=== PATIENT | female | born 1990 | race Two or more races ===

== ENCOUNTER 2016-11-14 22:07 | Emergency (ER) | payer BC ==
[2016-11-14 22:20] VITALS: BP 116/75
--- NOTE | 2016-11-14 22:53 | EDM.PDOC ---
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 She is having some cramping but this. She's had no fevers or chills cough or cold symptoms no dysuria. No trouble with this thus far. She had one US demonstrating an intrauterine ] Review of systems: As per history of present illness and below otherwise all systems reviewed and negative. Past medical history: As per history of present illness and as reviewed below otherwise noncontributory. Surgical history: As per history of present illness and as reviewed below otherwise noncontributory. Social history: No reported history of drug or alcohol abuse. Family history: As per history of present illness and as reviewed below otherwise noncontributory. Physical exam: HEENT: Atraumatic, normocephalic, pupils reactive, negative for conjunctival pallor or scleral icterus, mucous membranes moist, throat clear, neck supple, nontender, trachea midline. Lungs: Clear to auscultation, breath sounds equal bilaterally, chest nontender. Heart: S1S2, regular, negative for clicks, rubs, or JVD. Abdomen: Soft, nondistended, nontender. Negative for masses or hepatosplenomegaly. Negative for costovertebral tenderness. Pelvis: Stable nontender. Genitourinary: On speculum examination her cervix is closed there is some pooling of maroon blood present it was mopped up it didn't seem to be much blood coming from the os bimanual examination revealed a uterus consistent with her dates of 7 weeks Rectal: Deferred. Extremities: Atraumatic, negative for cords or calf pain. Neurovascular unremarkable. Neuro: Awake, alert, oriented. Cranial nerves II through XII unremarkable. Cerebellum unremarkable. Motor and sensory unremarkable throughout. Exam nonfocal. Diagnostics: [Ultrasound did demonstrate that there is still a heartbeat and an intrauterine but there is hemorrhage present labs are still pending but are providing just a baseline for us to see her in the future and so we will be discharging her at this time] Therapeutics: [She received IV fluids while here] Impression: [Threatened AB] Plan: [She is to return to the ER if she has significant bleeding soaking through a pad an hour or more. She is to follow up with her OB doctor] Definitive disposition and diagnosis as appropriate pending reevaluation and review of above. - Related Data Allergies/ADRs: Allergies Allergy/AdvReac Type Severity Reaction Status Date / Time No Known Allergies Allergy Verified 11/14/16 22:53 Home Meds: Home Meds NK [No Known Home Meds] 11/14/16 [History] ED ROS GENERAL - Review of Systems Review Of Systems: ROS reveals no pertinent complaints other than HPI. ED EXAM - Physical Exam Exam: See Below Course - Vital Signs Last Recorded V/S: Last Vital Signs Temp 37.5 C 11/14/16 22:53 Pulse 76 11/14/16 22:53 Resp 20 11/14/16 22:53 BP 116/75 11/14/16 22:53 Pulse Ox 100 11/14/16 22:53 - Orders/Labs/Meds Orders: Active Orders 24 hr Category Date Time Status OB 1st Tri Sgl 1st Gest [US] Stat Exams 11/14/16 23:33 Ordered HCG QUANTITATIVE,SERUM [CHEM] Stat Lab 11/14/16 23:32 Ordered PATIENT RETYPE [BBK] Stat Lab 11/14/16 23:39 Results TYPE AND SCREEN [BBK] Stat Lab 11/14/16 23:32 Ordered Sodium Chloride 0.9% [Normal Saline] 1,000 ml Med 11/14/16 23:45 Ordered IV ASDIRECTED Medication Orders Sodium Chloride (Normal Saline) 1,000 mls @ 250 mls/hr IV ASDIRECTED PATRICK Stop: 11/18/16 23:35 Last Admin: 11/14/16 23:45 Dose: 250 mls/hr Labs: Laboratory Tests 11/14/16 11/14/16 Range/Units 23:39 23:39 WBC 10.0 (4.5-11.0) K/uL RBC 4.38 (3.30-5.50) M/uL Hgb 13.1 (12.0-15.0) g/dL Hct 38.9 (36.0-48.0) % MCV 89 (80-98) fL MCH 30 (27-31) pg MCHC 34 (32-36) % Plt Count 290 (150-400) K/uL Neut % (Auto) 63 (36-66) % Lymph % (Auto) 22 L (24-44) % [place] % (Auto) 10 H (2-6) % Eos % (Auto) 5 H (2-4) % Baso % (Auto) 0 (0-1) % Blood Type O POSITIVE Gel Antibody Screen Negative Meds: Medications Generic Name Dose Route Start Last Admin Trade Name Luana PRN Reason Stop Dose Admin Sodium Chloride 1,000 mls @ 250 mls/hr 11/14/16 23:45 11/14/16 23:45 Normal Saline IV 11/18/16 23:35 250 mls/hr ASDIRECTED PATRICK Administration Departure - Departure Time of Disposition: 00:29 Disposition: Home, Self-Care 01 Condition: good Clinical Impression: Threatened Forms: ED Department Discharge Additional Instructions: Please return to the emergency room if your soaking through a pad an hour or more. Follow up with your OB doctorand establish care with an OB doctor if you have not done so already - My Orders Last 24 Hours: My Active Orders 11/14/16 23:32 HCG QUANTITATIVE,SERUM [CHEM] Stat TYPE AND SCREEN [BBK] Stat 11/14/16 23:33 OB 1st Tri Sgl 1st Gest [US] Stat 11/14/16 23:39 PATIENT RETYPE [BBK] Stat 11/14/16 23:45 Sodium Chloride 0.9% [Normal Saline] 1,000 ml IV ASDIRECTED - Assessment/Plan Last 24 Hours: My Active Orders 11/14/16 23:32 HCG QUANTITATIVE,SERUM [CHEM] Stat TYPE AND SCREEN [BBK] Stat 11/14/16 23:33 OB 1st Tri Sgl 1st Gest [US] Stat 11/14/16 23:39 PATIENT RETYPE [BBK] Stat 11/14/16 23:45 Sodium Chloride 0.9% [Normal Saline] 1,000 ml IV ASDIRECTED
[2016-11-14] MEDS ORDERED: Sodium Chloride 0.9% 1,000 ML IV SCH (23:45)
== END 2016-11-15 00:43 | disposition home or self-care (01) ==
LOC: JP.ED 22:07
DX: O20.0 Threatened abortion (principal); Z3A.01 Less than 8 weeks gestation of pregnancy
CPT/HCPCS: 36415; 76801; 84702; 85025; 86850; 86900; 86901; 96360; 99284; J7040

== ENCOUNTER 2017-06-27 02:38 | Inpatient (IN) | payer BC ==
[2017-06-27] MEDS ORDERED: Sodium Chloride 0.9% 10 ML Syringe FLUSH PRN ×2 (02:59→04:00)
[2017-06-27] MEDS ORDERED: Lactated Ringers 1,000 ML IV SCH (03:00)
[2017-06-27] MEDS ORDERED: Acetaminophen 325 MG Tab PO PRN (04:00)
[2017-06-27] MEDS ORDERED: Acetaminophen/Codeine 300-30 MG Tab PO PRN (04:04)
--- NOTE | 2017-06-27 04:15 | PCM.LDHP ---
L&D History of Present Illness - General Date of Service: 06/27/17 (SROM, labor) Admit Problem/Dx: Patient Status Order with Admit Dx/Problem 06/27/17 04:00 Patient Status [ADT] Routine 06/27/17 04:04 Patient Status [ADT] Routine Admission Diagnosis/Problem Admission Diagnosis/Problem Source of Information: Patient History Limitations: Reports: Language Barrier - History of Present Illness Introduction:: Gabriella is a 27 year old presented last evening linda but only dilated to one CM. Was sent home and returned at 0253 with SROM and linda stronger. She was found to be 8 cm and ruptured. admitted or delivery. 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 LMP (Approximate): ([facility]ENVEN[facility]O 06/24/17) - Past Surgical History GI Surgical History: Reports: Colonoscopy Social & Family History - Tobacco Use Smoking Status *Q: Never Smoker - Caffeine Use Caffeine Use: Reports: None - Recreational Drug Use Recreational Drug Use: No H&P Review of Systems - Review of Systems: Review Of Systems: See Below General: Reports: No Symptoms HEENT: Reports: No Symptoms Pulmonary: Reports: No Symptoms Cardiovascular: Reports: No Symptoms Gastrointestinal: Reports: No Symptoms Genitourinary: Reports: No Symptoms Musculoskeletal: Reports: No Symptoms Skin: Reports: No Symptoms Psychiatric: Reports: No Symptoms Neurological: Reports: No Symptoms Hematologic/Lymphatic: Reports: No Symptoms Immunologic: Reports: No Symptoms L&D Exam - Exam Exam: See Below - Vital Signs Vital Signs: Last Vital Signs Temp 96.9 F 06/27/17 02:57 Pulse 88 06/27/17 02:57 Resp 18 06/27/17 02:57 BP 98/64 06/27/17 02:57 Pulse Ox 97 06/27/17 02:57 - OB Specific Contraction Intensity: Strong Movement: Active Heart Tones: Present Heart Tones per Min: 130 Heart Rate (FHR) Variability: Moderate (6-25 bmp) Presentation: Vertex Estimated Weight: 7-8 pounds - Greer Score Greer Score Cervix Position: Anterior Greer Score Consistency: Soft Greer Score Effacement: >80% Greer Score Dilation: > 5 cm Greer Score Infant's Station: -1 ,0 Greer Score Total: 12 - Exam General: Alert, Oriented HEENT: PERRLA, Conjunctiva Clear, EACs Clear, EOMI, Hearing Intact, Mucosa Moist & Alexis, Nares Patent, Normal Nasal Septum, Posterior Pharynx Clear, TMs Clear Neck: Supple, Trachea Midline Lungs: Clear to Auscultation, Normal Respiratory Effort Cardiovascular: Regular Rate, Regular Rhythm GI/Abdominal Exam: Normal Bowel Sounds, Soft, Non-Tender, No Organomegaly, No Distention, No Abnormal Bruit, No Mass, Pelvis Stable Rectal Exam: Normal Exam, Normal Rectal Tone Genitourinary: Normal external exam, Normal bimanual exam, Normal speculum exam Back Exam: Normal Inspection, Full Range of Motion Extremities: Normal Inspection, Normal Range of Motion, Non-Tender, No Pedal Edema, Normal Capillary Refill Skin: Warm, Dry, Intact Neurological: Cranial Nerves Intact, Reflexes Equal Bilateral Psychiatric: Alert, Normal Affect, Normal Mood - Patient Data Lab Results Last 24 hrs: Laboratory Results - last 24 hr 06/27/17 06/27/17 Range/Units 02:58 02:59 WBC 13.6 H (4.5-11.0) K/uL RBC 4.49 (3.30-5.50) M/uL Hgb 12.4 (12.0-15.0) g/dL Hct 36.8 (36.0-48.0) % MCV 82 (80-98) fL MCH 28 (27-31) pg MCHC 34 (32-36) % Plt Count 258 (150-400) K/uL Neut % (Auto) 81 H (36-66) % Lymph % (Auto) 14 L (24-44) % [place] % (Auto) 5 (2-6) % Eos % (Auto) 0 L (2-4) % Baso % (Auto) 0 (0-1) % Membrane Rupture Negative (NEGATIVE) Result Diagrams: 06/27/17 02:59 - Problem List (1) Active labor at term SNOMED Code(s): 95840312 ICD Code: [id number] - Status: Acute Current Visit: Yes (2) SROM (spontaneous rupture of membranes) SNOMED Code(s): 917637028 ICD Code: [id number] - Status: Acute Current Visit: Yes (3) SNOMED Code(s): 91599694 ICD Code: Z34.90 - ENCNTR FOR SUPRVSN OF NORMAL , UNSP, UNSP TRIMESTER Status: Acute Current Visit: Yes Qualifiers: Weeks of gestation: 40 weeks Qualified Code(s): Z3A.40 - 40 weeks gestation of Problem List Initiated/Reviewed/Updated: Yes Orders Last 24hrs: Active Orders 24 hr Category Date Time Status Patient Status [ADT] Routine ADT 06/27/17 04:04 Active Antiembolic Devices [RC] .Routine Care 06/27/17 04:03 Active Communication Order [RC] ASDIRECTED Care 06/27/17 04:00 Active Heart Tones [RC] PER UNIT ROUTINE Care 06/27/17 04:00 Active Notify Provider Vital Signs [RC] PRN Care 06/27/17 04:00 Active Notify Provider [RC] PRN Care 06/27/17 04:00 Active Peripheral IV Care [RC] . DIRECTED Care 06/27/17 02:59 Active Up ad Mahsa [RC] ASDIRECTED Care 06/27/17 04:04 Active VTE/DVT Education [RC] Click to Edit Care 06/27/17 04:03 Active Vital Signs [RC] PER UNIT ROUTINE Care 06/27/17 04:00 Active Vital Signs [RC] PFP Care 06/27/17 04:04 Active Regular Diet [DIET] Diet 06/27/17 Breakfast Active CBC WITH AUTO DIFF [HEME] AM Lab 06/27/17 05:11 Ordered CBC WITH AUTO DIFF [HEME] AM Lab 06/28/17 05:11 Ordered Acetaminophen [Tylenol] Med 06/27/17 04:00 Active 650 mg PO Q4H PRN Acetaminophen/Codeine [Tylenol with Codeine No.3 300MG/ Med 06/27/17 04:04 Active 30MG] 1 tab PO Q4H PRN FLU Vacc [id number] 36Mos UP/PF [Fluzone Quad 4818-6236] Med 06/27/17 10:00 Once 60 mcg IM .ONCE ONE Ibuprofen [Motrin] Med 06/27/17 04:04 Active 600 mg PO Q6H PRN Lactated Ringers [Ringers, Lactated] 1,000 ml Med 06/27/17 03:00 Active IV ASDIRECTED Oxytocin/Normal Saline [Pitocin in NS 20 Units/1,000 ML Med 06/27/17 04:15 Active ] 20 unit in 1,000 ml IV TITRATE Sodium Chloride 0.9% [Saline Flush] Med 06/27/17 02:59 Active 10 ml FLUSH ASDIRECTED PRN Sodium Chloride 0.9% [Saline Flush] Med 06/27/17 04:00 Active 10 ml FLUSH ASDIRECTED PRN Assess Lochia [WOMSER] Per Unit Routine Oth 06/27/17 04:04 Ordered Assess Uterine Involution [WOMSER] Per Unit Routine Oth 06/27/17 04:04 Ordered DVT/VTE Prophylaxis Reflex [OM.PC] Routine Oth 06/27/17 04:00 Ordered Perineal Care [OM.PC] Per Unit Routine Oth 06/27/17 04:05 Ordered Peripheral IV Discontinue [OM.PC] Routine Oth 06/27/17 04:05 Ordered Peripheral IV Insertion Adult [OM.PC] Routine Oth 06/27/17 02:59 Ordered Saline Lock Insert [OM.PC] Routine Oth 06/27/17 04:00 Ordered Resuscitation Status Routine Resus Stat 06/27/17 04:00 Ordered Medication Orders Acetaminophen (Tylenol) 650 mg PO Q4H PRN PRN Reason: Pain (Mild 1-3) and fever Last Admin: 06/27/17 04:09 Dose: 650 mg Acetaminophen/Codeine Phosphate (Tylenol With Codeine No.3 300mg/30mg) 1 tab PO Q4H PRN PRN Reason: Pain (moderate 4-6) Lactated Ringer's (Ringers, Lactated) 1,000 mls @ 25 mls/hr IV ASDIRECTED PATRICK PRN Reason: KVO Oxytocin/Sodium Chloride (Pitocin In Ns 20 Units/1,000 Ml) 20 unit in 1,000 mls @ 6 mls/hr IV TITRATE PATRICK; 2 MUNITS/MIN PRN Reason: Protocol Ibuprofen (Motrin) 600 mg PO Q6H PRN PRN Reason: mild pain or fever Influenza Virus Vaccine (Fluzone Quad [id number]) 60 mcg IM .ONCE ONE Stop: 06/27/17 10:01 Sodium Chloride (Saline Flush) 10 ml FLUSH ASDIRECTED PRN PRN Reason: Keep Vein Open Sodium Chloride (Saline Flush) 10 ml FLUSH ASDIRECTED PRN PRN Reason: Keep Vein Open Assessment/Plan Comment:: 27 yr old in active labor with SROM with meconium. Admit and plan for vaginal delivery. Labs HIV neg, ABO O pos, Rubella immune, GBS neg
--- NOTE | 2017-06-27 04:27 | PCM.DEL ---
L & D Note - General Info Date of Service: 06/27/17 Mother's Due Date: 07/24/17 - Delivery Note Labor: Spontaneous Delivery Outcome: Livebirth Infant Delivery Method: Spontaneous Vaginal Delivery-Single Infant Delivery Mode: Spontaneous Presentation: Vertex Nuchal Cord: None Anesthesia Type: None Amniotic Fluid Description: Clear Episiotomy Type: None Laceration: None Placenta: Intact, Spontaneous, Meconium Stained Cord: 3 Vessels Estimated Blood Loss: 200 Resuscitation Needed: No [place]: Bulb Syringe, Stimulated, Warmed, [place] Used Provider: Melodie Luevano Score 1 min: 9 Score 5 min: 9 Score 10 min: 10 Second Stage Interventions: Reports: Second Nurse Reviewed Heart Tones, Encouragement Given, Pushing Effectively, Pushing, McRobert's Position Delivery Comments (Free Text/Narrative):: This 27 year old G4 now P4 who is 40 2/7 weeks gestation presented in active labor and was ruptured with meconium strained fluid. [place] progressed quickly to complete and at 0328 delivered over and intact perineum a viable female infant in NADEEM position. The baby was placed on mother's abdomen where she cried spontaneously. She was bulb suctioned mouth and nose for meconium. Baby transitioned quickly and had Apgars of 9,9,10, three vessel cord and weighted 8 pounds. The placenta was expressed spontaneously intact zaidi, grade three and meconium stained. Active management of the third stage was used. No lacerations of the cervix, vagina, rectum or perineum were found EBL 200cc Mother and baby to post and nursery in stable condition. First stage 8403-7505 Second stage 5273-8439 Third stage 7342-6598 - General Info Date of Service: 06/27/17 Admission Dx/Problem (Free Text): Patient Status Order with Admit Dx/Problem 06/27/17 04:00 Patient Status [ADT] Routine 06/27/17 04:04 Patient Status [ADT] Routine Admission Diagnosis/Problem Admission Diagnosis/Problem Functional Status: Reports: Pain Controlled - Review of Systems General: Reports: No Symptoms HEENT: Reports: No Symptoms Pulmonary: Reports: No Symptoms Cardiovascular: Reports: No Symptoms Gastrointestinal: Reports: No Symptoms Genitourinary: Reports: No Symptoms Musculoskeletal: Reports: No Symptoms Skin: Reports: No Symptoms Neurological: Reports: No Symptoms Psychiatric: Reports: No Symptoms - Patient Data Vitals - Most Recent: Last Vital Signs Temp 96.9 F 06/27/17 02:57 Pulse 88 06/27/17 02:57 Resp 18 06/27/17 02:57 BP 98/64 06/27/17 02:57 Pulse Ox 97 06/27/17 02:57 Lab Results Last 24 Hours: Laboratory Results - last 24 hr 06/27/17 06/27/17 Range/Units 02:58 02:59 WBC 13.6 H (4.5-11.0) K/uL RBC 4.49 (3.30-5.50) M/uL Hgb 12.4 (12.0-15.0) g/dL Hct 36.8 (36.0-48.0) % MCV 82 (80-98) fL MCH 28 (27-31) pg MCHC 34 (32-36) % Plt Count 258 (150-400) K/uL Neut % (Auto) 81 H (36-66) % Lymph % (Auto) 14 L (24-44) % [place] % (Auto) 5 (2-6) % Eos % (Auto) 0 L (2-4) % Baso % (Auto) 0 (0-1) % Membrane Rupture Negative (NEGATIVE) Med Orders - Current: Current Medications Acetaminophen (Tylenol) 650 mg PO Q4H PRN PRN Reason: Pain (Mild 1-3) and fever Last Admin: 06/27/17 04:09 Dose: 650 mg Acetaminophen/Codeine Phosphate (Tylenol With Codeine No.3 300mg/30mg) 1 tab PO Q4H PRN PRN Reason: Pain (moderate 4-6) Lactated Ringer's (Ringers, Lactated) 1,000 mls @ 25 mls/hr IV ASDIRECTED PATRICK PRN Reason: KVO Oxytocin/Sodium Chloride (Pitocin In Ns 20 Units/1,000 Ml) 20 unit in 1,000 mls @ 6 mls/hr IV TITRATE PATRICK; 2 MUNITS/MIN PRN Reason: Protocol Ibuprofen (Motrin) 600 mg PO Q6H PRN PRN Reason: mild pain or fever Influenza Virus Vaccine (Fluzone Quad 9179-3089) 60 mcg IM .ONCE ONE Stop: 06/27/17 10:01 Sodium Chloride (Saline Flush) 10 ml FLUSH ASDIRECTED PRN PRN Reason: Keep Vein Open Sodium Chloride (Saline Flush) 10 ml FLUSH ASDIRECTED PRN PRN Reason: Keep Vein Open Discontinued Medications Oxytocin/Sodium Chloride (Pitocin In Ns 20 Units/1,000 Ml) Confirm Administered Dose 20 unit in 1,000 mls @ as directed .ROUTE .STK-MED ONE Stop: 06/27/17 03:12 Influenza Virus Vaccine (Pharmacy To Dose - Influenza Vaccine) 1 each IM ONETIME ONE Stop: 06/27/17 03:18 - Exam General: Alert, Oriented HEENT: Pupils Equal, Pupils Reactive Neck: Supple Lungs: Clear to Auscultation, Normal Respiratory Effort Cardiovascular: Regular Rate, Regular Rhythm GI/Abdominal Exam: Soft (Female) Exam: Normal External Exam, Cervical Dilatation, Enlarged Uterus, Vaginal Bleeding Back Exam: Normal Inspection, Full Range of Motion Extremities: Normal Inspection, Normal Range of Motion Skin: Warm Neurological: No New Focal Deficit Psy/Mental Status: Alert, Normal Affect, Normal Mood - Problem List & Annotations (1) Active labor at term SNOMED Code(s): 62633267 Code(s): IJT0525 - Status: Acute Current Visit: Yes (2) SROM (spontaneous rupture of membranes) SNOMED Code(s): 186348260 Code(s): LOF4153 - Status: Acute Current Visit: Yes (3) SNOMED Code(s): 43659781 Code(s): Z34.90 - ENCNTR FOR SUPRVSN OF NORMAL , UNSP, UNSP TRIMESTER Status: Acute Current Visit: Yes Qualifiers: Weeks of gestation: 40 weeks Qualified Code(s): Z3A.40 - 40 weeks gestation of (4) () SNOMED Code(s): 942616437 Code(s): Z78.9 - OTHER SPECIFIED HEALTH STATUS Status: Acute Current Visit: Yes (5) Meconium in amniotic fluid SNOMED Code(s): 5858340 Code(s): P96.83 - MECONIUM STAINING Status: Acute Current Visit: Yes (6) Vaginal delivery SNOMED Code(s): 134401880 Code(s): O80 - ENCOUNTER FOR FULL-TERM UNCOMPLICATED DELIVERY Status: Acute Current Visit: Yes - Problem List Review Problem List Initiated/Reviewed/Updated: Yes - My Orders Last 24 Hours: My Active Orders 06/27/17 02:59 Peripheral IV Care [RC] . DIRECTED Sodium Chloride 0.9% [Saline Flush] 10 ml FLUSH ASDIRECTED PRN Peripheral IV Insertion Adult [OM.PC] Routine 06/27/17 03:00 Lactated Ringers [Ringers, Lactated] 1,000 ml IV ASDIRECTED 06/27/17 04:00 Communication Order [RC] ASDIRECTED Heart Tones [RC] PER UNIT ROUTINE Notify Provider Vital Signs [RC] PRN Notify Provider [RC] PRN Vital Signs [RC] PER UNIT ROUTINE Acetaminophen [Tylenol] 650 mg PO Q4H PRN Sodium Chloride 0.9% [Saline Flush] 10 ml FLUSH ASDIRECTED PRN DVT/VTE Prophylaxis Reflex [OM.PC] Routine Saline Lock Insert [OM.PC] Routine Resuscitation Status Routine 06/27/17 04:03 Antiembolic Devices [RC] .Routine VTE/DVT Education [RC] Click to Edit 06/27/17 04:04 Patient Status [ADT] Routine Up ad Mahsa [RC] ASDIRECTED Vital Signs [RC] PFP Acetaminophen/Codeine [Tylenol with Codeine No.3 300MG/30MG] 1 tab PO Q4H PRN Ibuprofen [Motrin] 600 mg PO Q6H PRN Assess Lochia [WOMSER] Per Unit Routine Assess Uterine Involution [WOMSER] Per Unit Routine 06/27/17 04:05 Perineal Care [OM.PC] Per Unit Routine Peripheral IV Discontinue [OM.PC] Routine 06/27/17 04:15 Oxytocin/Normal Saline [Pitocin in NS 20 Units/1,000 ML] 20 unit in 1,000 ml IV TITRATE 06/27/17 05:11 CBC WITH AUTO DIFF [HEME] AM 06/27/17 10:00 FLU Vacc [id number] 36Mos UP/PF [Fluzone Quad 9049-4951] 60 mcg IM .ONCE ONE 06/27/17 Breakfast Regular Diet [DIET] 06/28/17 05:11 CBC WITH AUTO DIFF [HEME] AM - Assessment Assessment:: 06/27/17 27 year old without complications, lab: HGB 12.4, PLT 258 HIV neg GBS neg ABO O pos Rubella immune - Plan Plan:: 27 yr old in active labor with SROM with meconium. Admit and plan for vaginal delivery. Labs HIV neg, ABO O pos, Rubella immune, GBS neg 06/27/17 Routine care support Home 24-48 hours
[2017-06-27] MEDS: Ibuprofen 600 MG Tab PO PRN ×3 (08:07→19:54)
[2017-06-27] MEDS ORDERED: FLU Vacc QS 2017-18 (36mos UP)/PF 60 MCG/0.5 ML Syringe IM ONE (10:00)
[2017-06-28] MEDS: Ibuprofen 600 MG Tab PO PRN (08:24)
--- NOTE | 2017-06-28 08:45 | PCM.PNPP ---
- General Info Date of Service: 06/28/17 Admission Dx/Problem (Free Text): Patient Status Order with Admit Dx/Problem 06/27/17 04:00 Patient Status [ADT] Routine 06/27/17 04:04 Patient Status [ADT] Routine Admission Diagnosis/Problem Admission Diagnosis/Problem Functional Status: Reports: Pain Controlled - Review of Systems General: Reports: No Symptoms HEENT: Reports: No Symptoms Pulmonary: Reports: No Symptoms Cardiovascular: Reports: No Symptoms Gastrointestinal: Reports: No Symptoms Genitourinary: Reports: No Symptoms Musculoskeletal: Reports: No Symptoms Skin: Reports: No Symptoms Neurological: Reports: No Symptoms Psychiatric: Reports: No Symptoms - General Info Date of Service: 06/28/17 - Patient Data Vital Signs - Most Recent: Last Vital Signs Temp 98.4 F 06/28/17 04:00 Pulse 71 06/28/17 04:00 Resp 16 06/28/17 04:00 BP 110/62 06/28/17 04:00 Pulse Ox 98 06/28/17 04:00 Weight - Most Recent: 199 lb 15.983 oz Lab Results - Last 24 Hours: Laboratory Results - last 24 hr 06/28/17 Range/Units 05:11 WBC 8.6 (4.5-11.0) K/uL RBC 3.40 (3.30-5.50) M/uL Hgb 9.5 L (12.0-15.0) g/dL Hct 28.6 L (36.0-48.0) % MCV 84 (80-98) fL MCH 28 (27-31) pg MCHC 33 (32-36) % Plt Count 123 L (150-400) K/uL Neut % (Auto) 58 (36-66) % Lymph % (Auto) 30 (24-44) % [place] % (Auto) 6 (2-6) % Eos % (Auto) 6 H (2-4) % Baso % (Auto) 0 (0-1) % Med Orders - Current: Current Medications Acetaminophen (Tylenol) 650 mg PO Q4H PRN PRN Reason: Pain (Mild 1-3) and fever Last Admin: 06/27/17 04:09 Dose: 650 mg Acetaminophen/Codeine Phosphate (Tylenol With Codeine No.3 300mg/30mg) 1 tab PO Q4H PRN PRN Reason: Pain (moderate 4-6) Last Admin: 06/27/17 17:13 Dose: 1 tab Lactated Ringer's (Ringers, Lactated) 1,000 mls @ 25 mls/hr IV ASDIRECTED PATRICK PRN Reason: KVO Oxytocin/Sodium Chloride (Pitocin In Ns 20 Units/1,000 Ml) 20 unit in 1,000 mls @ 6 mls/hr IV TITRATE PATRICK; 2 MUNITS/MIN PRN Reason: Protocol Ibuprofen (Motrin) 600 mg PO Q6H PRN PRN Reason: mild pain or fever Last Admin: 06/28/17 08:24 Dose: 600 mg Sodium Chloride (Saline Flush) 10 ml FLUSH ASDIRECTED PRN PRN Reason: Keep Vein Open Discontinued Medications Oxytocin/Sodium Chloride (Pitocin In Ns 20 Units/1,000 Ml) Confirm Administered Dose 20 unit in 1,000 mls @ as directed .ROUTE .STK-MED ONE Stop: 06/27/17 03:12 Last Admin: 06/27/17 08:07 Dose: Not Given Influenza Virus Vaccine (Pharmacy To Dose - Influenza Vaccine) 1 each IM ONETIME ONE Stop: 06/27/17 03:18 Influenza Virus Vaccine (Fluzone Quad [id number]) 60 mcg IM .ONCE ONE Stop: 06/27/17 10:01 Last Admin: 06/27/17 18:58 Dose: 60 mcg - Infant Interaction Disposition, : [place] in Room with Family Infant Interaction: Holding Infant Feeding: Breastfed Infant; Nursed Well Support Person: Significant Other - Recovery Exam Fundal Tone: Firm Fundal Level: At Umbilicus Fundal Placement: Midline Lochia Amount: Moderate Lochia Color: Rubra/Red Perineum Description: Intact, Minimal Bruising/Swelling Episiotomy/Laceration: None Bladder Status: Voiding Urinary Elimination: Voided - Exam General: Alert, Oriented HEENT: Pupils Equal Neck: Supple Lungs: Clear to Auscultation, Normal Respiratory Effort Cardiovascular: Regular Rate, Regular Rhythm GI/Abdominal Exam: Normal Bowel Sounds, Soft, Non-Tender, No Organomegaly, No Distention, No Abnormal Bruit, No Mass, Pelvis Stable Extremities: Normal Inspection, Normal Range of Motion, Non-Tender, No Pedal Edema, Normal Capillary Refill Skin: Warm, Dry, Intact Wound/Incisions: Healing Well Neurological: No New Focal Deficit Psy/Mental Status: Alert, Normal Affect, Normal Mood - Problem List & Annotations (1) Active labor at term SNOMED Code(s): 66954469 Code(s): WLW4184 - Status: Acute Current Visit: Yes (2) SROM (spontaneous rupture of membranes) SNOMED Code(s): 431134465 Code(s): ARR6030 - Status: Acute Current Visit: Yes (3) SNOMED Code(s): 32336961 Code(s): Z34.90 - ENCNTR FOR SUPRVSN OF NORMAL , UNSP, UNSP TRIMESTER Status: Acute Current Visit: Yes Qualifiers: Weeks of gestation: 40 weeks Qualified Code(s): Z3A.40 - 40 weeks gestation of (4) (infant) SNOMED Code(s): 248326171 Code(s): Z78.9 - OTHER SPECIFIED HEALTH STATUS Status: Acute Current Visit: Yes (5) Meconium in amniotic fluid SNOMED Code(s): 1128915 Code(s): P96.83 - MECONIUM STAINING Status: Acute Current Visit: Yes (6) Vaginal delivery SNOMED Code(s): 682691554 Code(s): O80 - ENCOUNTER FOR FULL-TERM UNCOMPLICATED DELIVERY Status: Acute Current Visit: Yes - Problem List Review Problem List Initiated/Reviewed/Updated: Yes - My Orders Last 24 Hours: My Active Orders 06/27/17 Breakfast Regular Diet [DIET] - Assessment Assessment:: 06/27/17 27 year old without complications, lab: HGB 12.4, PLT 258 HIV neg GBS neg ABO O pos Rubella immune 06/28/17 Doing well HGB 9.5 started iron home today - Plan Plan:: 27 yr old in active labor with SROM with meconium. Admit and plan for vaginal delivery. Labs HIV neg, ABO O pos, Rubella immune, GBS neg 06/27/17 Routine care support Home 24-48 hours 06/28/17chris today see Elena 6 weeks
[2017-06-28 08:59] VITALS: BP 92/47
== END 2017-06-28 10:50 | disposition home or self-care (01) | DRG 560 ==
LOC: JP.OBCHECK 02:38 → JP.OB 02:57 → OBSVTOIN 03:28 → JP.MS 06:51
PROVIDERS: ADMIT Nurse Practitioner Family; ATTEND Nurse Practitioner Family
PROC: 10E0XZZ Delivery of Products of Conception, External Approach (ICD-10-PCS; principal; 2017-06-27)
DX: O77.0 Labor and delivery complicated by meconium in amniotic fluid (principal); Z3A.40 40 weeks gestation of pregnancy; Z37.0 Single live birth; Z23 Encounter for immunization
CPT/HCPCS: 36415; 59409; 84112; 85025; 90686; A9270-GY